=== PATIENT | female | born 1930 | race Caucasian/White ===

== ENCOUNTER 2016-12-21 14:11 | Inpatient (IN) | payer OTHER ==
[2016-12-21 14:30] LABS: BILIRUBIN,URINE NEGATIVE (NEGATIVE); BLOOD/HEMOGLOBIN,URINE 1+ (NEGATIVE); GLUCOSE, URINE NEGATIVE (NEGATIVE); KETONES,URINE NEGATIVE (NEGATIVE); LEUKOCYTE ESTERASE ,URINE 1+ (NEGATIVE); NITRITES,URINE NEGATIVE (NEGATIVE); PROTEIN,URINE 1+ (NEGATIVE); UROBILINOGEN,URINE NORMAL (NORMAL)
[2016-12-21 14:38] LABS: APPEARANCE,URINE SLIGHTLY HAZY (CLEAR); BACTERIA,URINE 1+ /HPF (NEGATIVE); COLOR,URINE YELLOW (YELLOW); HYALINE CASTS, URINE MODERATE /LPF (NEGATIVE); RBC,URINE 0-2 /HPF (NEGATIVE); SQUAMOUS EPITHELIAL CELL,UR FEW /HPF (NEGATIVE)
[2016-12-21 14:53] LABS: BASOPHILS % (AUTO) 0.8 % (0.2-1.0); EOSINOPHILS % (AUTO) 1.1 % (0.9-2.9); HEMATOCRIT 23.2 % (36.0-47.0); HEMOGLOBIN 7.3 g/dL (12.0-16.0); LYMPHOCYTES # (AUTO) 0.7 X10^3/uL (1.3-2.9); MEAN CORPUSCULAR HEMOGLOBIN 24.5 pg (27.0-34.0); MEAN CORPUSCULAR HGB CONC 31.3 g/dL (33.0-35.0); MEAN CORPUSCULAR VOLUME 78.3 fL (80.0-100.0); MEAN PLATELET VOLUME 8.7 fL (7.4-11.0); MONOCYTES # (AUTO) 0.4 x10^3/uL (0.3-0.8); MONOCYTES % (AUTO) 9.3 % (0.0-13.0); NEUTROPHILS # (AUTO) 2.8 x10^3/uL (2.2-4.8); NEUTROPHILS % (AUTO) 70.8 % (42.0-75.0); PLATELET COUNT 148 X10^3/uL (150.0-450.0); RED BLOOD COUNT 2.96 X10^6/uL (3.5-5.4); RED CELL DISTRIBUTION WIDTH 20.7 % (11.6-16.5); WHITE BLOOD COUNT 3.9 X10^3/uL (3.6-10.0)
[2016-12-21 15:11] LABS: BLOOD UREA NITROGEN 8 mg/dL (7-18); CALCIUM 7.9 mg/dL (8.5-10.1); CARBON DIOXIDE 27.7 mmol/L (21-32); CHLORIDE 104 mmol/L (98-107); COR NA(FOR HYPERGLY) 138 mmol/L (136-145); CREATININE 1.16 mg/dL (0.55-1.02); GLUCOSE 118 mg/dL (65-99); SODIUM 138 mmol/L (136-145); TROPONIN I < 0.02 ng/mL (0-1.5); eGFR BLACK RACES 57 (>60); eGFR NON BLACK RACES 47 (>60)
[2016-12-21 15:15] LABS: ALANINE AMINOTRANSFERASE 22 Units/L (12-78); ALBUMIN 3.1 g/dL (3.4-5.0); ALKALINE PHOSPHATASE 94 Units/L (46-116); ASPARTATE AMINO TRANSFERASE 19 Units/L (15-37); CKMB % 1.3 % (<4); COR CA(FOR HYPOALB) 8.6 mg/dL (8.5-10.1); CREATINE KINASE 111 Units/L (26-192); CREATINE KINASE MB 1.4 ng/mL (0-4.0); TOTAL PROTEIN 5.7 g/dL (6.4-8.2)
--- NOTE | 2016-12-21 15:16 | RAD ---
HISTORY: Decreased breath sounds Study: Chest one view Comparison: None Findings: The heart is enlarged. No congestive heart failure is noted. No acute alveolar infiltrates are ident ified. No pleural effusions are present. The bony thorax is unremarkable with the exception of bilat eral shoulder hemiarthroplasties. IMPRESSION: Cardiomegaly without congestive heart failure Lungs clear Reported By:
--- NOTE | 2016-12-21 15:18 | CT ---
CT head without contrast Indication: Altered mental status, unresponsive, confusion Comparison: None Technique: CT images of the head were obtained without contrast. Automatic exposure control was util ized. Findings: There is moderate generalized age-appropriate brain atrophy, with concomitant ventricular and sulcal enlargement. No acute bleed, mass effect, or abnormal extra-axial collection is identifie d. No significant skeletal abnormality. The visualized paranasal sinuses and mastoid air cells are c lear. Impression: No acute intracranial abnormality identified. Reported By:
[2016-12-21 15:37] LABS: ANISOCYTOSIS 1+; HYPOCHROMASIA SLIGHT; PLATELET MORPHOLOGY COMMENT NORMAL (NORMAL); POIKILOCYTOSIS SLIGHT
--- NOTE | 2016-12-21 15:58 | DR.LOC ---
HPI - Time seen Time seen: 15:40 - PCP Primary Care Physician: jesus coleman - Complaint Chief Complaint Doctors Comments: unresponsive Chief Complaint:: she has alzhimers, took am meds and noticed she may have taken night meds. riding golf cart and she went out Self Treatment fo Chief Complaint: called 911 - Nurses Notes Reviewed Nurses Notes Review: Yes - Source History Provided: Significant Other, EMS - Mode of Arrival Mode of Arrival: EMS - Timing Onset of Chief Complaint: 12/21/16 Came on: Suddenly - Duration Duration: Since Onset - Context Presyncopal phase: None History of: None - Severity Severity: Normal activity level - Modifying factors Worsens: Nothing PMH - PMH Past Medical History: Yes Past Medical History: Alzheimers, Arthritis, Hypertension, Hypothyroidism Past Surgical History: No Surgical History: Hysterectomy, Ortho Surgery Past Surgical History Comment: shoulder and hip replacement - Family History History of Family Medical Conditions: No - Social History Does patient currently use any type of tobacco product: No Have you used tobacco products in the last 12 months: No Does any household member use tobacco: No Alcohol Use: None Do you use any recreational Drugs:: No Lives With: Spouse Lives Where: Home - infectious screening In the last 2 months have you had wt loss of >10#?: NO Have you had fever, night sweats or hemotysis?: No Have you traveled outside the country in the last 6 months?: No Isolation: Standard ROS - Review of Systems Constitutional: No Symptoms Reported Eyes: No Symptoms Reported ENTM: No Symptoms Reported Respiratoy: No Symptoms Reported Cardiovascular: Other (bradycardia) Gastrointestinal/Abdominal: No Symptoms Reported Genitourinary: No Symptoms Reported Musculoskeletal: No Symptoms Reported Integumentary: No Symptoms Reported Endocrine: No Symptoms Reported Psychiatric: Other (dementia) PE - Vital Signs Vitals: Temperature 96.4 F Pulse Rate [Right Brachial] 60 Pulse Rate 45 Respiratory Rate 20 Blood Pressure [Right Arm] 153/66 Blood Pressure 149/65 O2 Sat by Pulse Oximetry 100 - General Limitations: Altered Mental Status General Appearance: Other (unresponsive except sternal rub) - Head Head Exam: Normal Inspection - Eyes Eye exam: Other (pupil pinpoint) Sclera/Conjunctival: Normal Inspection: Left - ENT ENT Exam: Normal Exam, Normal Oropharynx, Mucous Membranes Moist - Neck Neck Exam: Normal Inspection, Trachea Midline - Chest Chest Inspection: Normal Inspection, Symmetric Chest Wall Rise - Respiratory Respiratory Exam: Bilateral Clear to Auscultation - Cardiovascular Cardiovascular Exam: Bradycardia - Abdominal Exam Abdominal Exam: Normal Inspection, Normal Bowel Sounds, Soft - Extremities Extremities Exam: Normal Inspection - Neurologic Neurological Exam: Other (unresponsive) Course - Reevaluation 1st: Improved (Pt is awake and oriented . She recognizes her . She has a hgb of 7.3. Her hgb was 12.1 (08/01/16) per reports received from Dr Pires office.) ROR - Labs Reviewed Result Diagrams: 12/21/16 14:46 12/21/16 14:46 Laboratory: WBC 3.9 X10^3/uL (3.6-10.0) 12/21/16 14:46 RBC 2.96 X10^6/uL (3.5-5.4) L 12/21/16 14:46 Hgb 7.3 g/dL (12.0-16.0) L 12/21/16 14:46 Hct 23.2 % (36.0-47.0) L 12/21/16 14:46 MCV 78.3 fL (80.0-100.0) L 12/21/16 14:46 MCH 24.5 pg (27.0-34.0) L 12/21/16 14:46 MCHC 31.3 g/dL (33.0-35.0) L 12/21/16 14:46 RDW 20.7 % (11.6-16.5) H 12/21/16 14:46 Plt Count 148 X10^3/uL (150.0-450.0) L 12/21/16 14:46 Plt Count Comment Decreased (ADEQUATE) A 12/21/16 14:46 MPV 8.7 fL (7.4-11.0) 12/21/16 14:46 Neut % 70.8 % (42.0-75.0) 12/21/16 14:46 Lymph % 18.0 % (21.0-51.0) L 12/21/16 14:46 [place] % 9.3 % (0.0-13.0) 12/21/16 14:46 Eos % 1.1 % (0.9-2.9) 12/21/16 14:46 Baso % 0.8 % (0.2-1.0) 12/21/16 14:46 Neut # 2.8 x10^3/uL (2.2-4.8) 12/21/16 14:46 Lymph # 0.7 X10^3/uL (1.3-2.9) L 12/21/16 14:46 [place] # 0.4 x10^3/uL (0.3-0.8) 12/21/16 14:46 Eos # 0.0 x10^3/uL (0.0-0.2) 12/21/16 14:46 Baso # 0.0 X10^3/uL (0.0-0.1) 12/21/16 14:46 Absolute Nucleated RBC 0.0 /100WBC 12/21/16 14:46 Plt Morphology Comment Normal (NORMAL) 12/21/16 14:46 RBC Morphology Abnormal (NORMAL) A 12/21/16 14:46 Hypochromasia Slight A 12/21/16 14:46 Poikilocytosis Slight A 12/21/16 14:46 Anisocytosis 1+ A 12/21/16 14:46 Sodium 138 mmol/L (136-145) 12/21/16 14:46 Corrected Sodium 138 mmol/L (136-145) 12/21/16 14:46 Potassium 4.0 mmol/L (3.5-5.1) 12/21/16 14:46 Chloride 104 mmol/L (98-107) 12/21/16 14:46 Carbon Dioxide 27.7 mmol/L (21-32) 12/21/16 14:46 BUN 8 mg/dL (7-18) 12/21/16 14:46 Creatinine 1.16 mg/dL (0.55-1.02) H 12/21/16 14:46 Est GFR (MDRD) Af Amer 57 (>60) L 12/21/16 14:46 Est GFR (MDRD) Non-Af 47 (>60) L 12/21/16 14:46 Glucose 118 mg/dL (65-99) H 12/21/16 14:46 Calcium 7.9 mg/dL (8.5-10.1) L 12/21/16 14:46 Corrected Calcium 8.6 mg/dL (8.5-10.1) 12/21/16 14:46 Total Bilirubin 0.50 mg/dL (0.2-1.0) 12/21/16 14:46 AST 19 Units/L (15-37) 12/21/16 14:46 ALT 22 Units/L (12-78) 12/21/16 14:46 Alkaline Phosphatase 94 Units/L (46-116) 12/21/16 14:46 Creatine Kinase 111 Units/L (26-192) 12/21/16 14:46 CK-MB (CK-2) 1.4 ng/mL (0-4.0) 12/21/16 14:46 CK/CKMB % Calc 1.3 % (<4) 12/21/16 14:46 Troponin I < 0.02 ng/mL (0-1.5) 12/21/16 14:46 Total Protein 5.7 g/dL (6.4-8.2) L 12/21/16 14:46 Albumin 3.1 g/dL (3.4-5.0) L 12/21/16 14:46 Globulin 2.6 g/dL (2.5-4.5) 12/21/16 14:46 Albumin/Globulin Ratio 1.2 Ratio (1.1-2.1) 12/21/16 14:46 Specimen Type Catherized urine 12/21/16 14:20 Urine Color Yellow (YELLOW) 12/21/16 14:20 Urine Appearance Slightly hazy (CLEAR) 12/21/16 14:20 Urine pH 7.0 (5.0 - 8.0) 12/21/16 14:20 Ur Specific [place] 1.010 (1.000-1.030) 12/21/16 14:20 Urine Protein 1+ (NEGATIVE) 12/21/16 14:20 Urine Glucose (UA) Negative (NEGATIVE) 12/21/16 14:20 Urine Ketones Negative (NEGATIVE) 12/21/16 14:20 Urine Occult Blood 1+ (NEGATIVE) 12/21/16 14:20 Urine Nitrite Negative (NEGATIVE) 12/21/16 14:20 Urine Bilirubin Negative (NEGATIVE) 12/21/16 14:20 Urine Urobilinogen Normal (NORMAL) 12/21/16 14:20 Ur Leukocyte Esterase 1+ (NEGATIVE) 12/21/16 14:20 Urine RBC 0-2 /HPF (NEGATIVE) 12/21/16 14:20 Urine WBC 4-5 /HPF (NEGATIVE) 12/21/16 14:20 Ur Squamous Epith Cells Few /HPF (NEGATIVE) 12/21/16 14:20 Urine Bacteria 1+ /HPF (NEGATIVE) 12/21/16 14:20 Hyaline Casts Moderate /LPF (NEGATIVE) 12/21/16 14:20 Ur Culture Indicated? Yes/culture set up 12/21/16 14:20 Stool Description Fob tube 12/21/16 16:11 Stl Occult Blood (IFOB) Positive (NEGATIVE) A 12/21/16 16:11 Blood Type B POSITIVE 12/21/16 16:20 Antibody Screen Negative 12/21/16 16:20 - Diagnosis Discharge Problem: Polypharmacy, Unresponsive episode, GI bleed - Discharge Plan Disposition: Disch/Tx to Hospital Condition: Stable - Follow ups/Referrals Follow ups/Referrals: JESUS COLEMAN [Primary Care Provider] - 3 days - Instructions
[2016-12-21] MEDS: NS 100 ML IV 100 ML IV ONE ×2 (16:49→21:43)
--- NOTE | 2016-12-21 17:22 | CT ---
HISTORY: Low hemoglobin Study: CT abdomen and pelvis without and with IV contrast. contrast Comparison: None Technique: Multiple axial images of the abdomen and pelvis were obtained from the lung bases to the pubic symph ysis before and after the administration of IV contrast. Sagittal and coronal reformations were pro vided. Findings: The visualized portions of the lung bases are unremarkable. The liver, spleen, pancreas, kidneys, a nd adrenal glands are unremarkable in their CT appearance. The gallbladder is surgically absent.. N o significant mesenteric lymphadenopathy or stranding can be observed. No free fluid or free air is seen within the abdomen. There is heavy atherosclerotic calcification without aneurysm. There is n o significant stenosis or mural thrombus. No bowel wall thickening or bowel dilatation is present. The colon is unremarkable. Specifically, there is no diverticulosis noted within the sigmoid colon. There is marked artifact from bilateral hip prosthesis. There is a Swanson balloon catheter in the ur inary bladder. There is severe lumbar degenerative disk disease. There is severe broad-based tablet making machine operator ior bony ridging or osteophyte formation at L1-2. There is secondary acquired spinal stenosis, right more than left. IMPRESSION: 1. No acute disease demonstrated. 2. Severe lumbar degenerative disease with severe posterior bony ridging and osteophyte formation at L1-2 Reported By:
[2016-12-21] MEDS ORDERED: NS 500 ML IV 500 ML IV ONE (18:55)
[2016-12-21 18:56] LABS: HEMATOCRIT 25.6 % (36.0-47.0); HEMOGLOBIN 7.9 g/dL (12.0-16.0)
[2016-12-21 21:40] VITALS: BMI 21.9
[2016-12-21] MEDS ORDERED: BENADRYL INJ 50 MG VIAL IVP ONE (22:22)
[2016-12-21] MEDS ORDERED: TYLENOL 325 MG TAB PO ONE (22:22)
[2016-12-22 06:35] LABS: BASOPHILS % (AUTO) 0.7 % (0.2-1.0); EOSINOPHILS # (AUTO) 0.1 x10^3/uL (0.0-0.2); EOSINOPHILS % (AUTO) 2.7 % (0.9-2.9); HEMATOCRIT 28.1 % (36.0-47.0); HEMOGLOBIN 9.3 g/dL (12.0-16.0); LYMPHOCYTES # (AUTO) 1.2 X10^3/uL (1.3-2.9); LYMPHOCYTES % (AUTO) 29.2 % (21.0-51.0); MEAN CORPUSCULAR HEMOGLOBIN 25.8 pg (27.0-34.0); MEAN CORPUSCULAR HGB CONC 32.9 g/dL (33.0-35.0); MEAN CORPUSCULAR VOLUME 78.6 fL (80.0-100.0); MEAN PLATELET VOLUME 8.6 fL (7.4-11.0); MONOCYTES # (AUTO) 0.4 x10^3/uL (0.3-0.8); MONOCYTES % (AUTO) 9.6 % (0.0-13.0); NEUTROPHILS # (AUTO) 2.3 x10^3/uL (2.2-4.8); NEUTROPHILS % (AUTO) 57.8 % (42.0-75.0); PLATELET COUNT 153 X10^3/uL (150.0-450.0); RED BLOOD COUNT 3.58 X10^6/uL (3.5-5.4); RED CELL DISTRIBUTION WIDTH 20.9 % (11.6-16.5)
[2016-12-22 06:50] LABS: ALANINE AMINOTRANSFERASE 23 Units/L (12-78); ALBUMIN 3.2 g/dL (3.4-5.0); ALKALINE PHOSPHATASE 106 Units/L (46-116); ASPARTATE AMINO TRANSFERASE 21 Units/L (15-37); BLOOD UREA NITROGEN 8 mg/dL (7-18); CALCIUM 8.4 mg/dL (8.5-10.1); CARBON DIOXIDE 28.3 mmol/L (21-32); CHLORIDE 107 mmol/L (98-107); CREATININE 0.88 mg/dL (0.55-1.02); GLUCOSE 87 mg/dL (65-99); SODIUM 140 mmol/L (136-145); TOTAL PROTEIN 6.1 g/dL (6.4-8.2); eGFR BLACK RACES > 60 (>60); eGFR NON BLACK RACES > 60 (>60)
[2016-12-22 07:04] LABS: ANISOCYTOSIS SLIGHT; HYPOCHROMASIA 1+; PLATELET MORPHOLOGY COMMENT NORMAL (NORMAL)
[2016-12-22] MEDS ORDERED: K-LYTE EFFERVESCENT PO PRN (08:46)
[2016-12-22] MEDS ORDERED: K-DUR TAB 20 MEQ PO PRN (08:46)
[2016-12-22] MEDS ORDERED: K-RIDER 10 MEQ/NS 100 ML 10 MEQ/100 ML BAG IV PRN (08:46)
[2016-12-22] MEDS ORDERED: POTASSIUM CHLORIDE LIQ 20 MEQ UDC PO PRN (08:46)
[2016-12-22] MEDS ORDERED: AMLODIPINE PO SCH (10:15)
[2016-12-22] MEDS ORDERED: ATORVASTATIN PO SCH (10:15)
[2016-12-22] MEDS ORDERED: [UNRECOGNIZED DRUG - OTHER] PO SCH (10:15)
[2016-12-22] MEDS ORDERED: NS 1000 ML 1,000 ML ONE (12:34)
[2016-12-22] MEDS ORDERED: DIPRIVAN VIAL 20 ML ONE (13:04)
--- NOTE | 2016-12-22 13:07 | DR.H&P ---
H&P - History & Physical for Day of: H&P Date: 12/21/16 - Chief Complaint Chief Complaint: Unresponsiveness - Allergies Allergies/Adverse Reactions: Allergies Allergy/AdvReac Type Severity Reaction Status Date / Time Penicillins AdvReac Verified 12/21/16 14:34 - History of Present Illness History of Present Illness: Pt is an elderly WF brought to the ER due to unresponsiveness. The patient has a h/o dementia and reportedly took too much of her medications after see had already been given her daily meds by her button pusher. Pt was given narcan and IVF's in the ER and was awake and alert at the time of my evaluation. Pt's hgb was noted to be approx 7.2 and her primary physician's office had a hgb of 12 documented in 08/11. Pt was admitted for further w/u. - Past Medical History Past Medical History: Alzheimers, Arthritis, Hypertension, Hypothyroidism - Past Surgical History Surgical History: Cholecystectomy, Hysterectomy, Ortho Surgery - Family History Family Medical History: Diabetes Mellitus, Cancer, [place], Heart Failure, Hypertension - Social History Does patient currently use any type of tobacco product: No Have you used tobacco products in the last 12 months: No Type of Tobacco Use: None Does any household member use tobacco: No Alcohol Use: None Drug Use: None - Medications Home Medications: Alendronate Sodium [Fosamax] 70 mg PO Q7D 12/21/16 [History Confirmed 12/21/16] Amlodipine/Atorvastatin [Amlodipine-Atorvast 10-40 mg] 1 each PO DAILY 12/21/16 [History Confirmed 12/21/16] Aspirin [ASPIRIN 81 MG CHEWTAB *] 81 mg PO DAILY 12/21/16 [History Confirmed ] Ca/D3/Mag/Zinc/David/Woody/Mgbor [Caltrate 600+D3+Min Chew Tab] 1 tab PO DAILY [History Confirmed 12/21/16] Donepezil HCl [Aricept] 10 mg PO BID 12/21/16 [History Confirmed 12/21/16] Gabapentin [NEURONTIN TAB 600 MG *] 300 mg PO BID PRN 12/21/16 [History Confirmed 12/21/16] Levothyroxine Sodium 75 mcg PO DAILY 12/21/16 [History Confirmed 12/21/16] Memantine HCl [Namenda Tab 10 mg] 10 mg PO BID 12/21/16 [History Confirmed 12/21] Methotrexate Sodium [METHOTREXATE 2.5 MG *] 4 tabs PO WEEKLY 12/21/16 [History Confirmed 12/21/16] Naproxen 375 mg PO BID 12/21/16 [History Confirmed 12/21/16] - Review of Systems Constitutional: See HPI Eyes: No Symptoms Reported ENT: No Symptoms Reported Respiratory: No Symptoms Reported Cardiovascular: No Symptoms Reported Gastrointestinal: No Symptoms Reported Genitourinary: No Symptoms Reported Musculoskeletal: No Symptoms Reported Skin: No Symptoms Reported Neurological: See HPI - Physical Exam Vital Signs: Temperature 97.6 F Pulse Rate [Right Brachial] 51 Respiratory Rate 18 Blood Pressure [Right Arm] 189/77 O2 Sat by Pulse Oximetry 95 Oriented: Person, Place Eyes: Normal Ear: Normal Nose: Normal Throat: Normal Respiratory: Clear Throughout Cardiovascular: Normal : Normal Auscultation: Bowel Sounds: Normal Palpation: Normal Tenderness: Epigastric (moderate) Skin: Normal Musculoskeletal: Normal Psychiatric: Normal Mood Description: Calm Affect: Angry Speech Pattern: Clear - Assessment/Plan (1) Overdose Qualifiers: Encounter type: initial encounter Injury intent: accidental or unintentional Qualified Code(s): T50.901A - Poisoning by unspecified drugs, medicaments and biological substances, accidental (unintentional), initial encounter Status: Acute Plan: 1. Admit for OPO. 2. Protonix 40mg IV q 12 hours. 3. IVF hydration. 4. Frequent neurochecks. 5. HOLD NSAIDS/ASA. 6. serial H/H measurements. 7. EGD in am. 8. Continue all other home meds. 9. Type and cross and transfuse 2 units of PRBC's. 10. For further orders see chart. (2) Anemia Qualifiers: Anemia type: iron deficiency Iron deficiency anemia type: chronic blood loss Vitamin B12 deficiency anemia type: V Folate deficiency anemia type: F Bone marrow failure anemia type: B Hemolytic anemia type: H Other causes of anemia: O Chronic kidney disease stage: C Qualified Code(s): D50.0 - Iron deficiency anemia secondary to blood loss (chronic) Status: Acute Plan: as above (3) Polypharmacy Status: Acute Plan: as above (4) Unresponsive episode Narrative Support Text: secondary to unintentional medication overdose Status: Acute Plan: as above
[2016-12-22] MEDS: ARICEPT TAB 10 MG PO SCH ×2 (17:05→20:41)
[2016-12-22] MEDS: SYNTHROID 75 mcg TAB PO SCH (17:05)
[2016-12-22] MEDS: LIPITOR TAB 40 MG PO SCH (17:05)
[2016-12-22] MEDS: NORVASC TAB 10 MG PO SCH (17:06)
[2016-12-22] MEDS: PROTONIX INJ 40 MG VIAL IVP SCH ×2 (17:06→23:09)
[2016-12-22] MEDS: NAMENDA TAB 10 MG PO SCH ×2 (17:06→20:41)
[2016-12-23 06:19] LABS: BASOPHILS % (AUTO) 0.8 % (0.2-1.0); EOSINOPHILS # (AUTO) 0.2 x10^3/uL (0.0-0.2); EOSINOPHILS % (AUTO) 3.6 % (0.9-2.9); HEMATOCRIT 30.6 % (36.0-47.0); LYMPHOCYTES # (AUTO) 1.5 X10^3/uL (1.3-2.9); LYMPHOCYTES % (AUTO) 34.2 % (21.0-51.0); MEAN CORPUSCULAR HEMOGLOBIN 25.6 pg (27.0-34.0); MEAN CORPUSCULAR HGB CONC 32.6 g/dL (33.0-35.0); MEAN CORPUSCULAR VOLUME 78.4 fL (80.0-100.0); MEAN PLATELET VOLUME 8.8 fL (7.4-11.0); MONOCYTES # (AUTO) 0.4 x10^3/uL (0.3-0.8); MONOCYTES % (AUTO) 8.1 % (0.0-13.0); NEUTROPHILS # (AUTO) 2.4 x10^3/uL (2.2-4.8); NEUTROPHILS % (AUTO) 53.3 % (42.0-75.0); PLATELET COUNT 177 X10^3/uL (150.0-450.0); RED CELL DISTRIBUTION WIDTH 20.4 % (11.6-16.5); WHITE BLOOD COUNT 4.4 X10^3/uL (3.6-10.0)
[2016-12-23 06:30] LABS: ALANINE AMINOTRANSFERASE 26 Units/L (12-78); ALBUMIN 3.3 g/dL (3.4-5.0); ALKALINE PHOSPHATASE 107 Units/L (46-116); ASPARTATE AMINO TRANSFERASE 24 Units/L (15-37); BLOOD UREA NITROGEN 11 mg/dL (7-18); CALCIUM 8.9 mg/dL (8.5-10.1); CARBON DIOXIDE 27.1 mmol/L (21-32); CHLORIDE 106 mmol/L (98-107); COR CA(FOR HYPOALB) 9.5 mg/dL (8.5-10.1); CREATININE 0.84 mg/dL (0.55-1.02); GLUCOSE 85 mg/dL (65-99); SODIUM 140 mmol/L (136-145); TOTAL PROTEIN 6.5 g/dL (6.4-8.2); eGFR BLACK RACES > 60 (>60); eGFR NON BLACK RACES > 60 (>60)
[2016-12-23 06:47] LABS: ANISOCYTOSIS 1+; HYPOCHROMASIA SLIGHT; PLATELET MORPHOLOGY COMMENT NORMAL (NORMAL); POIKILOCYTOSIS SLIGHT
[2016-12-23] MEDS: NORVASC TAB 10 MG PO SCH (10:02)
[2016-12-23] MEDS: NAMENDA TAB 10 MG PO SCH (10:02)
[2016-12-23] MEDS: LIPITOR TAB 40 MG PO SCH (10:02)
[2016-12-23] MEDS: ARICEPT TAB 10 MG PO SCH (10:02)
[2016-12-23] MEDS: PROTONIX INJ 40 MG VIAL IVP SCH (10:02)
[2016-12-23] MEDS: SYNTHROID 75 mcg TAB PO SCH (10:02)
[2016-12-23] MEDS ORDERED: VITAMIN B-12 INJ IM ONE (16:00)
[2016-12-23 16:12] VITALS: BP 195/73
== END 2016-12-23 17:20 | disposition home or self-care (01) | DRG 379 ==
LOC: ER 14:11 → OBS 20:44 → MED/SURG 12-22 16:15
PROVIDERS: ADMIT Internal Medicine; ATTEND Internal Medicine
PROC: 30233N1 Transfusion of Nonautologous Red Blood Cells into Peripheral Vein, Percutaneous Approach (ICD-10-PCS; 2016-12-22)
PROC: 0DB68ZX Excision of Stomach, Via Natural or Artificial Opening Endoscopic, Diagnostic (ICD-10-PCS; principal; 2016-12-22 12:45)
DX: K92.2 Gastrointestinal hemorrhage, unspecified (principal); T50.991A Poisoning by other drugs, medicaments and biological substances, accidental (unintentional), initial encounter; R94.31 Abnormal electrocardiogram [ECG] [EKG]; I51.7 Cardiomegaly; G30.8 Other Alzheimer's disease; F02.80 Dementia in other diseases classified elsewhere, unspecified severity, without behavioral disturbance, psychotic disturbance, mood disturbance, and anxiety; M13.89 Other specified arthritis, multiple sites; I10 Essential (primary) hypertension; E03.8 Other specified hypothyroidism; D50.0 Iron deficiency anemia secondary to blood loss (chronic); Y92.89 Other specified places as the place of occurrence of the external cause; K29.80 Duodenitis without bleeding; K25.9 Gastric ulcer, unspecified as acute or chronic, without hemorrhage or perforation; K29.30 Chronic superficial gastritis without bleeding; K20.8 Other esophagitis; K44.9 Diaphragmatic hernia without obstruction or gangrene; R26.89 Other abnormalities of gait and mobility
CPT/HCPCS: 36415; 36430; 51702; 70450; 71010; 74178; 80053; 81001; 82270; 82550; 82553; 82607; 82728; 82746; 83540; 84132; 84466; 84484; 85014; 85018; 85025; 86850; 86900; 86901; 86922; 87086; 88305; 88342; 93005; 93010; 96365; 99100; 99284; A4222; C9113; P9016; A4217; J1200; J3420; J3490

== ENCOUNTER 2018-10-25 04:28 | Observation (INO) ==
[2018-10-25] MEDS ORDERED: NS 1000 ML 1,000 ML ONE ×2 (04:33→05:52)
[2018-10-25] MEDS ORDERED: NS 1000 ML 1,000 ML IV ONE ×2 (04:50→05:55)
[2018-10-25 05:34] LABS: BASOPHILS % (AUTO) 0.4 % (0.2-1.0); EOSINOPHILS # (AUTO) 0.1 x10^3/uL (0.0-0.2); EOSINOPHILS % (AUTO) 1.2 % (0.9-2.9); HEMATOCRIT 35.5 % (36.0-47.0); LYMPHOCYTES # (AUTO) 0.7 X10^3/uL (1.3-2.9); LYMPHOCYTES % (AUTO) 13.9 % (21.0-51.0); MEAN CORPUSCULAR HEMOGLOBIN 31.7 pg (27.0-34.0); MEAN CORPUSCULAR HGB CONC 33.8 g/dL (33.0-35.0); MEAN CORPUSCULAR VOLUME 93.6 fL (80.0-100.0); MEAN PLATELET VOLUME 9.4 fL (7.4-11.0); MONOCYTES # (AUTO) 0.4 x10^3/uL (0.3-0.8); MONOCYTES % (AUTO) 8.2 % (0.0-13.0); NEUTROPHILS % (AUTO) 76.3 % (42.0-75.0); PLATELET COUNT 124 X10^3/uL (150.0-450.0); RED BLOOD COUNT 3.79 X10^6/uL (3.5-5.4); WHITE BLOOD COUNT 5.2 X10^3/uL (3.6-10.0)
[2018-10-25 05:42] LABS: ALANINE AMINOTRANSFERASE 13 Units/L (12-78); ALBUMIN 2.8 g/dL (3.4-5.0); ALKALINE PHOSPHATASE 104 Units/L (46-116); AMYLASE 38 Units/L (25-115); ASPARTATE AMINO TRANSFERASE 16 Units/L (15-37); BLOOD UREA NITROGEN 22 mg/dL (7-18); CALCIUM 9.4 mg/dL (8.5-10.1); CARBON DIOXIDE 23.5 mmol/L (21-32); CHLORIDE 108 mmol/L (98-107); COR CA(FOR HYPOALB) 10.4 mg/dL (8.5-10.1); CREATININE 0.91 mg/dL (0.55-1.02); LIPASE 158 Units/L (73-393); SODIUM 140 mmol/L (136-145); TOTAL PROTEIN 6.1 g/dL (6.4-8.2); eGFR NON BLACK RACES > 60 (>60)
--- NOTE | 2018-10-25 05:49 | CT ---
CT brain without contrast Indication:Altered mental status Comparison: 12/21/2016 Technique: Multiple axial images of the brain were obtained from the skull base to the vertex without administration of IV contrast. Dose reduction techniques including automated exposure control (AEC) and adjustment of mA and kV were utilized. Findings: Generalized cerebral atrophy with mild bilateral periventricular and deep white matter hypoattenuation. No acute intraparenchymal hemorrhage or mass can be identified. No extra-axial fluid collections are seen. No alteration in the attenuation of the brain parenchyma can be identified to suggest acute or subacute ischemic change. The ventricular system is symmetric and nondilated. The extracranial structures are grossly unremarkable. IMPRESSION: 1. No acute intracranial process is identified. Reported By:
--- NOTE | 2018-10-25 06:06 | DR.AMS ---
HPI Time Seen Time Seen by Provider: 10/25/18 04:53 PCP Primary Care Physician: RAS HPI Comment HPI Comment: PATIENT IS 88YR OLD WHITE FEMALE WITH HISTORY OF HYPERTENSION, HYPOTHYRIODISM ANS ELLI IS HERE IN THE EMERGENCY ROOM VIA EMS. PATIENT GOT UP, WENT IN THE RESTROOM, SAID SHE HAD RECTAL BLEED, BRIGHT RED BLOOD. SHE THEN BECAME UNRESPONSIVE. EMS WAS CALLED, WHEN THEY ARRIVE, PATIENT WAS UNRESPONSIVE. SHE WAS BRAYCADIACWITH PULSE IN THE 30S. 1MG ATROPIN IV WAS GIVEM. PULSE INCREASE TO 60S. NARCAN WAS GIVEN. SHE ALSO BECAME RESPONSIVE. IN ED PATIENTS VITAL SIGNS ARE INTACT AND SHE IS ANSWERING QUESTIONS. SHE IS COMPLAINING OF PAIN IN HER RIGHT KNEE THAT IS WORSE NOW. SHE DENIES TRAUMA. HISTORY ARTHETIS. Complaint Cheif Complaint Doctors Comments: UNRESPONSIVE, RECTAL BLEED. Chief Complaint:: [facility] DISPATCHED OUT TO PATIENT FOR WEAKNESS ONCE ON SEEN PATIENT WAS UNRESPONSIVE BUT BREATHING. STATED TO EMS THAT PATIENT GOT UP AND WENT TO RESTROOM AND PASSED SOME BRIGHT RED BLOOD. PATIENT WAS BRADYCARDIA HR IN 30'S ATROPINE 1MG AND NARCAN 0.2MG GIVEN TO PATIENT BY EMS ON SCENE. PATIENT BROUGHT IN BY STRETCHER AWAKE STATING THAT SHE WAS COLD. Reviewed Nurses Notes Reviewed: Yes Source History Provided: Patient and EMS Mode of Arrival Mode of Arrival: EMS Timing Onset of Chief Complaint: 10/25/18 Came On: Suddenly Symptoms: Improving Duration Duration: Constant Duration: Minutes Quality Quality: Decreased Alertness, Change in Behavior and Confusion Severity Severity: Moderate Context Recent: None History Of: None Associated Signs and Symptoms Associated Signs and Symptoms: Generalized Weakness, Change in Behavior, Confusion and Unresponsiveness PMH PMH Past Medical History: Yes Past Medical History: Alzheimers, Arthritis, Hypertension and Hypothyroidism Past Surgical History: Yes Surgical History: Cholecystectomy, Hysterectomy and Ortho Surgery Family History History of Family Medical Conditions: Yes Family Medical History: Diabetes Mellitus, Cancer, [place], Heart Failure and Hypertension Social History Alcohol Use: None Do you use any recreational Drugs:: No Lives Where: Home infectious screening Have you traveled outside the country in the last 6 months?: No ROS Review of Systems Constitutional: See HPI, Weakness and Fatigue; negative Chills, Diaphoresis, Fever and Loss of Appetite Eyes: See HPI; negative Eye Pain, Tearing and Discharge ENTM: No Symptoms Reported and See HPI; negative Ear Pain, Nose Discharge, Nose Congestion and Throat Pain Respiratoy: See HPI and Short of Breath; negative Non-Productive Cough and Wheezing Cardiovascular: See HPI and Syncope; negative Chest Pain and Palpitations (BRADYCARDIA.) Gastrointestinal/Abdominal: Other (GI BLEEDING.); negative See HPI, Abdominal Pain, Constipation, Diarrhea, Nausea and Vomiting Genitourinary: See HPI, Dysuria and Hematuria Neurological: See HPI and Weakness; negative Headache and Dizziness Musculoskeletal: See HPI, Back Pain and Muscle Pain Integumentary: No Symptoms Reported and See HPI; negative Change in Color, Rash and Bruises Hematologic/Lymphatic: See HPI; negative Easy Bleeding, Easy Bruising and Swollen Glands Endocrine: No Symptoms Reported and See HPI; negative Increased Thirst, Increased Urine and Decreased Appetite Psychiatric: No Symptoms Reported and Other (ALZSHEIMERS DEMENTIA.) All Other Systems: Reviewed and Negative PE Vitals Vital Signs: Temp Pulse Resp BP BP Pulse Ox 10/26/18 08:39 66 36 H 10/26/18 08:30 67 28 H 186/83 10/26/18 06:59 62 18 10/26/18 06:07 85 10/26/18 05:48 75 10/26/18 05:41 81 162/83 10/26/18 04:04 60 18 10/26/18 01:20 54 L 21 10/26/18 00:22 83 45 H 10/25/18 23:50 72 146/63 10/25/18 22:43 52 L 17 10/25/18 21:00 58 L 16 199/84 96 10/25/18 20:58 59 L 24 188/79 95 10/25/18 20:12 53 L 28 H 97 10/25/18 19:01 97.9 F 53 L 15 143/61 96 10/25/18 18:01 55 L 15 149/66 97 10/25/18 18:00 53 L 18 96 10/25/18 17:01 54 L 24 138/63 96 10/25/18 17:00 53 L 21 91 L 10/25/18 16:33 52 L 23 169/74 97 10/25/18 16:27 55 L 22 211/83 96 10/25/18 16:01 98.3 F 60 19 156/102 97 10/25/18 16:00 55 L 25 H 95 10/25/18 15:01 52 L 24 163/70 97 10/25/18 15:00 51 L 18 95 10/25/18 14:08 161/92 10/25/18 14:06 55 L 13 96 10/25/18 12:00 43 L 96 10/25/18 10:00 44 L 23 152/90 95 10/25/18 09:30 46 L 16 131/62 95 10/25/18 09:01 47 L 118/55 95 10/25/18 09:00 46 L 95 10/25/18 08:30 56 L 132/67 96 10/25/18 08:01 63 118/82 10/25/18 08:00 61 10/25/18 07:30 52 L 132/86 96 10/25/18 07:00 57 L 28 H 146/66 95 10/25/18 06:31 56 L 18 135/58 96 10/25/18 06:21 52 L 18 143/60 96 10/25/18 06:15 52 L 14 95 10/25/18 05:39 52 L 100 10/25/18 05:01 59 L 164/67 100 10/25/18 05:00 57 L 99 10/25/18 04:45 61 100 10/25/18 04:41 61 100 10/25/18 04:38 62 18 147/58 99 10/25/18 04:30 97.8 F 60 18 147/58 100 12/23/16 16:00 195/73 195/73 General Limitations: Altered Mental Status General Appearance: Alert and In Distress Head Head Exam: Normal Inspection, Atraumatic and Normocephalic Head Exam Physical: Other (NONE REPORTED.) Eyes Eye exam: PERRL; negative Scleral Icterus and Conjunctival Injection Pupils: Regular, Round: Bilateral and Reactive: Bilateral ENT ENT Exam: Normal Exam, Normal Oropharynx, Normal External Ear Exam, TM's Normal Bilaterally and Other External Ear Exam: Normal External Inspection; negative Mastoid Tenderness, Pain with Movement and External Tenderness TM/Canal Exam: Bilateral: Normal Nose Exam: Normal Nose Exam; negative Sinus Tenderness, Nasal Deviation and Septal Hematoma Mouth Exam: Normal Inspection; negative Trismus, Lip Swelling and Tongue Swelling Throat Exam: negative Tonsillar Erythema, Tonsillomegaly and Tonsillar Exudate Neck Neck Exam: Normal Inspection, Full ROM and Trachea Midline; negative Tenderness, Meningismus and Lymphadenopathy Chest Chest Inspection: Normal Inspection and Symmetric Chest Wall Rise; negative Tenderness Respiratory Respiratory Exam: Normal Lung Sounds Bilat; negative Accessory Muscle Use, Chest Wall Tenderness and Respiratory Distress Respiratory Exam: Bilateral: Rhonchi and Lower: Rhonchi Cardiovascular Cardiovascular Exam: Regular Rate, Bradycardia and Normal Heart Sounds; negative Systolic Murmur, Diastolic Murmur, Rubs and Gallop Abdominal Exam Abdominal Exam: Normal Inspection, Normal Bowel Sounds and Soft; negative Tenderness Extremities Extremities Exam: Tenderness (RT KNEE SWOLLEN AND TENDER.) Back Back Exam: Normal Inspection Neurological Neurological Exam: Alert; negative Motor Sensory Deficit Patient Oriented To: Person and Place; negative Time Cranial Nerve Exam: EOM Function (II, III, IV, ): Normal, Gag reflex (XI): Normal and Tongue Deviation: Normal Motor Strength - LUE: 5/5 Motor Strength - RUE: 5/5 Motor Strength - LLE: 5/5 Motor Strength - RLE: 4/5 Upper Motor Neuron Exam: Babinski Sign: Normal Psychological Psychiatric Exam: Normal Affect and Anxious Skin Skin Exam: Warm, Dry, Intact and Normal Color MDM Additional Information Obtained Additional Information Obtained From: Old Records and Family Differential Diagnosis Metabolic: Dehydration, Hypercalcemia, Hypernatremia, Hypoglycemia, Hyponatremia and Hypoxemia Structural: CVA and Mass Lesion Toxicologic: Drug Overdose ([place], BRADYCARDIA) and Medication Toxicity Infectious: Sepsis and UTI COURSE Treatment Treatment: SEE ORDERS. O4:33 NORMAL SALINE 1L IV BOLUS. 05:52 : NORMAL SALINE DRIP 125CC/HR. Consultation Consultation Comments: 06:45 : DISCUSS PATIENT WITH DR. HUDDLESTON/[facility] DISCUSSION TIME. HE WILL ADMIT PATIENT. ADMISSIN ORDERS DONE. ROR Labs Reviewed Laboratory Results Reviewed?: Yes Result Diagrams: 10/26/18 05:58 10/26/18 05:58 Laboratory: WBC 4.5 X10^3/uL (3.6-10.0) 10/26/18 05:58 RBC 3.40 X10^6/uL (3.5-5.4) L 10/26/18 05:58 Hgb 11.0 g/dL (12.0-16.0) L 10/26/18 05:58 Hct 31.8 % (36.0-47.0) L 10/26/18 05:58 MCV 93.4 fL (80.0-100.0) 10/26/18 05:58 MCH 32.4 pg (27.0-34.0) 10/26/18 05:58 MCHC 34.7 g/dL (33.0-35.0) 10/26/18 05:58 RDW 13.9 % (11.6-16.5) 10/26/18 05:58 Plt Count 127 X10^3/uL (150.0-450.0) L 10/26/18 05:58 MPV 9.8 fL (7.4-11.0) 10/26/18 05:58 Neut % (Auto) 54.1 % (42.0-75.0) 10/26/18 05:58 Lymph % (Auto) 33.2 % (21.0-51.0) 10/26/18 05:58 Bond % (Auto) 9.9 % (0.0-13.0) 10/26/18 05:58 Eos % (Auto) 2.2 % (0.9-2.9) 10/26/18 05:58 Baso % (Auto) 0.6 % (0.2-1.0) 10/26/18 05:58 Neut # (Auto) 2.4 x10^3/uL (2.2-4.8) 10/26/18 05:58 Lymph # (Auto) 1.5 X10^3/uL (1.3-2.9) 10/26/18 05:58 Bond # (Auto) 0.4 x10^3/uL (0.3-0.8) 10/26/18 05:58 Eos # (Auto) 0.1 x10^3/uL (0.0-0.2) 10/26/18 05:58 Baso # (Auto) 0.0 X10^3/uL (0.0-0.1) 10/26/18 05:58 Absolute Nucleated RBC 0.1 /100WBC 10/26/18 05:58 INR Target Range - 10/25/18 05:19 INR 1.08 (0.8-1.3) 10/25/18 05:19 APTT 28.8 SECONDS (22.9-36.5) 10/25/18 05:19 PTT Comment - 10/25/18 05:19 Sodium 143 mmol/L (136-145) 10/26/18 05:58 Corrected Sodium TNP 10/26/18 05:58 Potassium 3.3 mmol/L (3.5-5.1) L 10/26/18 05:58 Chloride 107 mmol/L (98-107) 10/26/18 05:58 Carbon Dioxide 28.1 mmol/L (21-32) 10/26/18 05:58 BUN 11 mg/dL (7-18) 10/26/18 05:58 Creatinine 0.76 mg/dL (0.55-1.02) 10/26/18 05:58 Est GFR (MDRD) Af Amer > 60 (>60) 10/26/18 05:58 Est GFR (MDRD) Non-Af > 60 (>60) 10/26/18 05:58 Glucose 90 mg/dL (65-99) 10/26/18 05:58 Lactic Acid 1.6 mmol/L (0.4-2.0) 10/25/18 05:19 Calcium 9.4 mg/dL (8.5-10.1) 10/26/18 05:58 Corrected Calcium 10.1 mg/dL (8.5-10.1) 10/26/18 05:58 Magnesium 1.6 mg/dL (1.7-2.9) L 10/26/18 05:58 Total Bilirubin 0.30 mg/dL (0.2-1.0) 10/26/18 05:58 AST 22 Units/L (15-37) 10/26/18 05:58 ALT 21 Units/L (12-78) 10/26/18 05:58 Alkaline Phosphatase 96 Units/L (46-116) 10/26/18 05:58 Creatine Kinase 88 Units/L (26-192) 10/25/18 18:05 CK-MB (CK-2) < 1.0 ng/mL (0-4.0) 10/25/18 18:05 CK/CKMB % Calc 1.1 % (<4) 10/25/18 18:05 Troponin I < 0.02 ng/mL (0-1.5) 10/25/18 18:05 Total Protein 6.5 g/dL (6.4-8.2) 10/26/18 05:58 Albumin 3.1 g/dL (3.4-5.0) L 10/26/18 05:58 Globulin 3.4 g/dL (2.5-4.5) 10/26/18 05:58 Albumin/Globulin Ratio 0.9 Ratio (1.1-2.1) L 10/26/18 05:58 Amylase 38 Units/L (25-115) 10/25/18 05:19 Lipase 158 Units/L (73-393) 10/25/18 05:19 Free T4 1.06 ng/dL (0.76-1.46) 10/25/18 11:36 TSH 3rd Generation 1.611 uIU/mL (0.358-3.74) 10/25/18 11:36 XRAY XRAY Findings: REPORT ON RECORD NOTED AND DISCUSS WITH PATIENT AND AND FAMILY. EKG Rhythm: NSR and SB Diagnosis Discharge Problem: Bradycardia Altered mental status Qualifiers: Altered mental status type: transient alteration of awareness Qualified Code(s): R40.4 - Transient alteration of awareness GI bleed Qualifiers: GI bleed type/associated pathology: unspecified gastrointestinal hemorrhage type Qualified Code(s): K92.2 - Gastrointestinal hemorrhage, unspecified Syncopal episodes Qualifiers: Syncope type: unspecified Qualified Code(s): R55 - Syncope and collapse
--- NOTE | 2018-10-25 06:19 | RAD ---
HISTORY: Pain and swelling right knee Study: Right knee two views Comparison: None Findings: There is severe tricompartmental degenerative joint disease present. No joint erosions are noted. No fracture, lytic, or blastic lesion is identified. No joint effusion or periarticular soft tissue abnormality is identified. IMPRESSION: Moderately severe tricompartmental degenerative joint disease Reported By:
--- NOTE | 2018-10-25 06:32 | RAD ---
HISTORY: Shortness of breath Study: Chest AP portable Comparison: 12/21/2016 Findings: The heart is within normal limits in size. The reji are normal. The aorta is calcified. The lung peralta are clear. The bony thorax is unremarkable with the exception of bilateral shoulder lara arthroplasties. IMPRESSION: Lungs clear Reported By:
[2018-10-25 12:11] LABS: CREATINE KINASE 57 Units/L (26-192); CREATINE KINASE MB < 1.0 ng/mL (0-4.0); TROPONIN I < 0.02 ng/mL (0-1.5)
[2018-10-25 12:14] LABS: CKMB % 1.8 % (<4)
--- NOTE | 2018-10-25 12:37 | DR.H&P ---
H&P - History & Physical for Day of: H&P Date: 10/25/18 - Chief Complaint Chief Complaint: weakness, near syncope - History of Present Illness History of Present Illness: 88 WF ER ADMISSION AFTER [facility] DISPATCHED OUT TO PATIENT FOR WEAKNESS ONCE ON SEEN PATIENT WAS UNRESPONSIVE BUT BREATHING. STATED TO EMS THAT PATIENT GOT UP AND WENT TO RESTROOM AND PASSED SOME BRIGHT RED BLOOD. PATIENT WAS BRADYCARDIA HR IN 30'S ATROPINE 1MG AND NARCAN 0.2MG GIVEN TO PATIENT BY EMS ON SCENE. PATIENT BROUGHT IN BY STRETCHER AWAKE STATING THAT SHE WAS COLD AND CLAMMY. PT HAS PMH OF OA, ANEMIA, HTN AND "LAZY HEART" PT AND FAMILY DENIES ANY HISTORY OF CAD. PT ADMITTED FOR TREATMENT AND EVALUATION SYMPTOMATIC BRADYCARDIA, WEAKNESS, GI BLEED. - Past Medical History Past Medical History: Hypertension, Alzheimers, Hypothyroidism, Arthritis - Past Surgical History Surgical History: Cholecystectomy, Hysterectomy, Ortho Surgery - Family History Family Medical History: Diabetes Mellitus, Cancer, [place], Heart Failure, Hypertension - Social History Does patient currently use any type of tobacco product: No Have you used tobacco products in the last 12 months: No Type of Tobacco Use: None Does any household member use tobacco: No Alcohol Use: None - Medications Home Medications: Penicillins Adverse Reaction (Verified 12/21/16 14:34) - Review of Systems Constitutional: Weakness Eyes: No Symptoms Reported ENT: No Symptoms Reported Respiratory: SOB with Excertion Cardiovascular: denies: Chest Pain, Edema Gastrointestinal: Melena Genitourinary: No Symptoms Reported Musculoskeletal: No Symptoms Reported Skin: No Symptoms Reported Neurological: Weakness - Physical Exam Vital Signs: Temperature 97.8 F Pulse Rate 44 Respiratory Rate 23 Blood Pressure [Right Arm] 195/73 Blood Pressure 152/90 O2 Sat by Pulse Oximetry 95 Oriented: Normal Eyes: Normal Ear: Normal Nose: Normal Throat: Normal Respiratory: Clear Throughout Cardiovascular: Bradycardia. negative: Edema : Normal Palpation: Normal Tenderness: Normal Skin: Decreased Turgur Musculoskeletal: Normal Mood Description: Calm Speech Pattern: Clear, Appropriate - Assessment/Plan (1) Bradycardia Status: Acute Plan: ADMIT ICU, SERIAL CE AND EKG. MEDICATION VERIFICATION, CONTINUOUS SUPPLEMENTAL O2. IV HYDRATION, CXR ON ADMISSION. BP CONTROL, R/O GI BLEED (2) Near syncope Status: Acute (3) GI bleed Status: Acute Plan: CBC, OCCULT STOOL, MONITOR (4) Anemia Qualifiers: Anemia type: iron deficiency Iron deficiency anemia type: chronic blood loss Qualified Code(s): D50.0 - Iron deficiency anemia secondary to blood loss (chronic) Status: Acute (5) Hypertension Status: Acute (6) Osteoarthritis Status: Acute - Allergies Allergies/Adverse Reactions: Allergies Allergy/AdvReac Type Severity Reaction Status Date / Time Penicillins AdvReac Verified 12/21/16 14:34
[2018-10-25 13:01] LABS: FREE T4 (FREE THYROXINE) 1.06 ng/dL (0.76-1.46); TSH (3RD GENERATION) 1.611 uIU/mL (0.358-3.74)
[2018-10-25 14:16] VITALS: BMI 23.3
[2018-10-25] MEDS ORDERED: APRESOLINE TAB 10 MG ONE (16:24)
[2018-10-25] MEDS: APRESOLINE TAB 10 MG PO SCH ×2 (16:34→21:01)
[2018-10-25 18:35] LABS: CKMB % 1.1 % (<4); CREATINE KINASE 88 Units/L (26-192); CREATINE KINASE MB < 1.0 ng/mL (0-4.0); TROPONIN I < 0.02 ng/mL (0-1.5)
[2018-10-25] MEDS: ARICEPT TAB 10 MG PO SCH (21:02)
[2018-10-25] MEDS: NAMENDA TAB 10 MG PO SCH (21:02)
[2018-10-25] MEDS ORDERED: RESTORIL CAP 15 MG PO ONE (22:20)
[2018-10-25] MEDS ORDERED: RESTORIL CAP 15 MG PO PRN (22:23)
[2018-10-26] MEDS ORDERED: VISTARIL PO PRN (00:40)
[2018-10-26] MEDS ORDERED: VISTARIL PO ONE (00:45)
--- NOTE | 2018-10-26 06:08 | RAD ---
Examination: AP chest History: Bradycardia, AMS Comparison 10/25/2018 Findings: Stable cardiac size with essentially clear lungs and pleural spaces. There is no evidence for pulmonary consolidation, edema, pneumothorax or developing pleural effusion. Impression: No interval change or acute findings. Reported By:
[2018-10-26 06:26] LABS: BASOPHILS % (AUTO) 0.6 % (0.2-1.0); EOSINOPHILS # (AUTO) 0.1 x10^3/uL (0.0-0.2); EOSINOPHILS % (AUTO) 2.2 % (0.9-2.9); HEMATOCRIT 31.8 % (36.0-47.0); LYMPHOCYTES # (AUTO) 1.5 X10^3/uL (1.3-2.9); LYMPHOCYTES % (AUTO) 33.2 % (21.0-51.0); MEAN CORPUSCULAR HEMOGLOBIN 32.4 pg (27.0-34.0); MEAN CORPUSCULAR HGB CONC 34.7 g/dL (33.0-35.0); MEAN CORPUSCULAR VOLUME 93.4 fL (80.0-100.0); MEAN PLATELET VOLUME 9.8 fL (7.4-11.0); MONOCYTES # (AUTO) 0.4 x10^3/uL (0.3-0.8); MONOCYTES % (AUTO) 9.9 % (0.0-13.0); NEUTROPHILS # (AUTO) 2.4 x10^3/uL (2.2-4.8); NEUTROPHILS % (AUTO) 54.1 % (42.0-75.0); PLATELET COUNT 127 X10^3/uL (150.0-450.0); RED CELL DISTRIBUTION WIDTH 13.9 % (11.6-16.5); WHITE BLOOD COUNT 4.5 X10^3/uL (3.6-10.0)
[2018-10-26 06:45] LABS: ALANINE AMINOTRANSFERASE 21 Units/L (12-78); ALBUMIN 3.1 g/dL (3.4-5.0); ALKALINE PHOSPHATASE 96 Units/L (46-116); ASPARTATE AMINO TRANSFERASE 22 Units/L (15-37); BLOOD UREA NITROGEN 11 mg/dL (7-18); CALCIUM 9.4 mg/dL (8.5-10.1); CARBON DIOXIDE 28.1 mmol/L (21-32); CHLORIDE 107 mmol/L (98-107); COR CA(FOR HYPOALB) 10.1 mg/dL (8.5-10.1); CREATININE 0.76 mg/dL (0.55-1.02); SODIUM 143 mmol/L (136-145); TOTAL PROTEIN 6.5 g/dL (6.4-8.2); eGFR NON BLACK RACES > 60 (>60)
[2018-10-26] MEDS ORDERED: MICRO K EXTEN CAP 10 MEQ PO PRN (06:57)
[2018-10-26] MEDS ORDERED: POTASSIUM CHLORIDE LIQ 20 MEQ UDC PO PRN (06:57)
[2018-10-26] MEDS ORDERED: K-DUR TAB 20 MEQ PO PRN (06:57)
[2018-10-26] MEDS ORDERED: KLOR-CON PO PRN (06:57)
[2018-10-26] MEDS ORDERED: K-RIDER 10 MEQ/NS 100 ML 10 MEQ/100 ML BAG IV PRN (06:57)
[2018-10-26] MEDS ORDERED: POTASSIUM CHL 40 MEQ/NS 0.45% 500 ML IV PRN (06:57)
[2018-10-26] MEDS ORDERED: POTASSIUM CHL 60 MEQ/NS 0.45% 500 ML IV PRN (06:57)
[2018-10-26 08:41] VITALS: BP 186/83
[2018-10-26] MEDS: ARICEPT TAB 10 MG PO SCH (08:44)
[2018-10-26] MEDS: APRESOLINE TAB 10 MG PO SCH (08:44)
[2018-10-26] MEDS: NAMENDA TAB 10 MG PO SCH (08:44)
[2018-10-26] MEDS ORDERED: SYNTHROID 75 mcg TAB PO SCH (09:00)
[2018-10-26] MEDS ORDERED: APRESOLINE TAB 25 MG PO SCH (10:00)
== END 2018-10-26 11:10 | disposition home or self-care (01) ==
LOC: ER 04:29 → ICU 04:29
PROVIDERS: ADMIT Internal Medicine; ATTEND Internal Medicine
DX: R55 Syncope and collapse; R00.1 Bradycardia, unspecified; R40.4 Transient alteration of awareness; R94.31 Abnormal electrocardiogram [ECG] [EKG]; M25.561 Pain in right knee; I10 Essential (primary) hypertension; E03.8 Other specified hypothyroidism; D50.0 Iron deficiency anemia secondary to blood loss (chronic); G30.8 Other Alzheimer's disease; K92.2 Gastrointestinal hemorrhage, unspecified; R06.02 Shortness of breath; R53.1 Weakness; M19.90 Unspecified osteoarthritis, unspecified site
CPT/HCPCS: 36415; 70450; 71010; 71045; 73560; 80053; 82150; 82550; 82553; 83605; 83690; 83735; 84439; 84443; 84484; 85025; 85610; 85730; 87040; 93005; 96365; 96367; 99284; A4222; Q0177; G0378; J7030